=== PATIENT | male | born 1965 | race Caucasian/White ===

== ENCOUNTER 2017-07-16 07:58 | Day surgery (SDC) | payer OTHER ==
[~2017-07-16] VITALS: Ht 147.3 cm; Wt 66.2 kg
[~2017-07-16 07:58] MED LIST: APRESOLINE10 MG PO; COZAAR25 MG PO; CYANOCOBALAM1000 MCG PO; FOLIC ACID1 MG PO; LEVEMIR FL100 UNIT/1 SC; LIPITOR10 MG PO; MULTIVITAMIN1 EAC2 PO; NOVOLOG PE100 UNITS/ SC; PHENOBARBITAL30 MG PO; SYNTHROID137 MCG PO; TEGRETOL200 MG PO; VITAMIN D31000 UNIT PO
[2017-07-16 08:52] LABS: POINT-OF-CARE METER ID UU14174212
[2017-07-16 09:07] VITALS: BP 198/86
[2017-07-16 09:51] LABS: CHLORIDE 99 MEQ/L (99-109); GFR ESTIMATE (CALCULATED) 23 mL/min/; GLUCOSE 132 mg/dL (70-99); POTASSIUM 3.8 MEQ/L (3.7-5.4); SODIUM 138 MEQ/L (136-147); UREA NITROGEN (BUN) 25 mg/dL (9-23)
[2017-07-16 11:37] LABS: POINT-OF-CARE METER ID UU13113675; POINT-OF-CARE USER ID ADMSLT55
[2017-07-16 12:12] VITALS: BP 177/81
[2017-07-16 13:12] VITALS: BP 175/70
== END 2017-07-16 13:20 | disposition home or self-care (01) ==
LOC: SDC 07:58
PROVIDERS: Ophthalmology
DX: E11.3593 Type 2 diabetes mellitus with proliferative diabetic retinopathy without macular edema, bilateral (principal); H43.12 Vitreous hemorrhage, left eye; G80.9 Cerebral palsy, unspecified; G40.909 Epilepsy, unspecified, not intractable, without status epilepticus; F79 Unspecified intellectual disabilities; I12.0 Hypertensive chronic kidney disease with stage 5 chronic kidney disease or end stage renal disease; E11.22 Type 2 diabetes mellitus with diabetic chronic kidney disease; N18.6 End stage renal disease; Z99.2 Dependence on renal dialysis; Z79.4 Long term (current) use of insulin
CPT/HCPCS: 80048; 82948; J2250; J2405; J3010